=== PATIENT | male | born 1990 | race Caucasian/White ===

== ENCOUNTER 2017-04-21 18:27 | Emergency (ER) | payer SELFPAY ==
[~2017-04-21] VITALS: Ht 205.7 cm; Wt 99.8 kg
== END 2017-04-21 20:40 | disposition home or self-care (01) ==
LOC: CED 18:27 → CFTX 18:27
DX: J02.0 Streptococcal pharyngitis (principal); F17.210 Nicotine dependence, cigarettes, uncomplicated
CPT/HCPCS: 87880; 96372; 99283; J0561